=== PATIENT | male | born 1960 | race Caucasian/White ===

== ENCOUNTER 2024-06-13 10:49 | Outpatient (AMB) | payer OTHER, SELFPAY ==
--- NOTE | 2024-06-13 10:52 | MHC.OFFVIS ---
Vital Signs 06/13/24 10:53 Height 5 ft 9.69 in Weight 195 lb 8.8 oz BMI 28.3 BP 120/78 Blood Pressure Location Lt brachial Position Sitting Pulse 65 Pulse Source Pulse Oximeter Pulse Oximetry (%) 98 Oxygen Delivery Method Room Air Intake Visit Reasons: PsA Intake Note: Patient presents today with PsA. Accompanied by: Self / Same As Patient Allergies No Known Allergies Allergy (Verified 06/13/24 10:55) HPI HPI PsA: Details: New patient visit. Hx of PsO back of scalp treated with topical steroid. Past hx of PsO elbows, knees and buttocks resolved with topical steroid. He has pain in multiple joints. He has bilateral shoulder pain R>L with limited ROM in the last year. 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 Reaching is difficult. He has chronic lower back pain but at this time it is not bothering him. He may wake up with back pain and stiffness that resolves within minutes after stretching. He reports that he has had back pain since he was a teenager. Back pain flares with overactivity. R knee pain exacerbated with going up and down stairs. At this time he does not have knee pain. He has had right knee swelling 3 years ago treated with cortisone injection with resolution of pain and swelling for 3-4 months. Hx gout. Controlled on allopurinol and low purine diet. No dactylitis or joint swelling at this time. No hx of plantar fascitis, iritis, IBD. No family hx of PsO. Sister and brother has Crohn's disease. MS lower back and hip. MS few minutes resolves with stretches. He has been evaluated for chronic right hip pain and has been found to have severe osteoarthritis affecting his right hip. Surgeon recommended surgery but patient would like to defer. He was also given option to do physical therapy or trying to her articular cortisone injection. Patient is thinking about it. He has not self medicating. Pmx of HTN and gout. Hernia surgery. No rheumatological family hx. Non-smoker. No alcohol use in a few years. Works in [employer]. Review of Systems Const All systems reviewed & are unremarkable except as noted in HPI and below Physical Exam Vital Signs: Last Vital Signs Pulse 65 06/13/24 10:53 BP 120/78 06/13/24 10:53 Pulse Ox 98 06/13/24 10:53 Oxygen Delivery Method Room Air 06/13/24 10:53 BMI result Body Mass Index 28.3 Const Other: General: Comfortable CVS: RRR Respiratory: clear to auscultation bilaterally. Good respiratory effort Skin: No lesions seen MSK: Tender to palpate bilateral shoulders. Right shoulder abduction 110 degrees with limited internal rotation. Left shoulder range of motion is normal with pain. No synovitis or enthesitis. No dactylitis. Heberden nodes present. 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 Normal range of motion of knees. Right hip external rotation is limited due to pain. No tenderness to palpate SI joints. No lumbar spinous process tenderness. Good lumbar flexion. Normal cervical range of motion. Negative KEYSHA. He localizes pain to his right SI joint when he has it. Assessment & Plan Assessment & Plan (1) Psoriasis: Comment: At this time patient does not have clinical findings of peripheral inflammatory arthritis. He reports a history of chronic back pain that is intermittent since childhood. He localizes his pain to his right SI joint when it occurs. Unremarkable exam today. I will be further working up for axial inflammatory arthritis with lumbar and SI joint x-rays. The characteristic of his back pain is suggestive of degenerative etiology (pain with activity). Code(s): L40.9 - Psoriasis, unspecified Category: Medical Plan: X-ray SI joints and lumbar spine ordered Return to clinic in 3 months or sooner if needed (2) Lower back pain: Code(s): M54.50 - Low back pain, unspecified Category: Medical Qualifiers: Chronicity: chronic Plan: See above (3) Bilateral shoulder pain: Comment: Bilateral with limited range of motion of right shoulder. Differential diagnosis includes degenerative joint disease versus chronic rotator cuff tendinopathy Code(s): M25.511 - Pain in right shoulder; M25.512 - Pain in left shoulder Category: Medical Qualifiers: Chronicity: chronic Qualified Code(s): M25.511 - Pain in right shoulder; M25.512 - Pain in left shoulder; G89.29 - Other chronic pain Plan: I have ordered x-rays of bilateral shoulders for further evaluation Patient agreed to physical therapy to improve range of motion and strength in his shoulders. PT requisition given to patient as he prefers to have PT done locally to his home Return to clinic in 3 months Orders: Orders XR shoulder LT min 2V Today M25.511 - Pain in right shoulder, M25.512 - Pain in left shoulder XR shoulder RT min 2V Today M25.511 - Pain in right shoulder, M25.512 - Pain in left shoulder XR lumbar spine 2-3V Today M54.50 - Low back pain, unspecified XR sacroiliac joint min 3V Today M54.50 - Low back pain, unspecified PT Evaluation and Treatment Today M25.511 - Pain in right shoulder, M25.512 - Pain in left shoulder Coding Level of Care Code New Pt Level 4 (14102) Diagnoses Psoriasis L40.9 Lower back pain M54.50 Chronicity: chronic Chronic pain of both shoulders M25.511; M25.512; G89.29 Chronicity: chronic
[2024-06-13 10:53] VITALS: BP 120/78; PULSE 65; O2SAT 98; BMI 28.3
--- OUTSIDE RECORDS SUMMARY | 2024-06-13 12:56 | XMS_ITS | Encounter Summary ---
Author Organization [facility] Address [address] [facility] [address] [place] [phone] Phone Care Team Providers Care Septic Technician Name Role Phone Ez Lopez MD Primary Care Provider [phone] Reason for Visit * Reason Comments Medication Refill Encounter Details Date Type Department Care Team (Late st Contact Info) Description 06/10/2024 Refill [facility] [address] [place] [address] Ez Lopez MD [address] [place] [address] [email or web address] Medication Refill Social History Tobacco Use Types Packs/Day Years Used Date Smoking Tobacco: Never Smokeless Tobacco: Never Alcohol Use Standard Drinks/Week Comments Not Currently 4 (1 standard drink = 0.6 oz pure alcohol) 2-3 drinks, mixed drinks, 2 x week Quit 2022 Child or Family Care Answer Date Record ed Do you have problems with on e of the following making it difficult for you to work, study, or receive health care? No 01/04/2022 Education Answer Date Recorded Are you interested in more education? Not on zakiya e 01/18/2024 Are you concerned about learning? Not on file 01/18/2024 No 01/18/2024 No 01/18/2024 Food Answer Date Recorded Within the past 6 months we worried whether our food would run out before we got money to buy more. Never True 01/04/2022 Within the past 6 months the food we bought just didn't last and we didn't have enough money to get more. Never True Residential Stability Answer Date Recor ded What is your housing situation today? I have jennifer sing 01/04/2022 How many times have you move d in the past 12 months? Zero (I did not move) 01/04/2022 Paying for Meds Answer Date Recorded Do you have trouble paying for medicines? No 01/04/2022 Paying Utility Bills Answer Date Record ed Do you have trouble paying your heating or elect ricity bill? No 01/04/2022 Transportation Answer Date Recorded Has the lack of transportati on kept you from medical appointments or from getting medications? No 01/04/2022 Unemployment Answer Date Recorded Are you currently unemployed or working on a part-time or temporary basis, and looking for work? No 01/04/2022 Digital Access Answer Date Recorded No 07/14/2022 No 07/14/2022 Reliable internet access at home? Not on file 07/14/2022 Device with a working camera? Not on file Sex and Gender Information Value Date Recorded Sex Assigned at Not on file Gender Identity Not on file Sexual Orientation Not on file documented as of this encounter Progress Notes * Kamla Masterson CMA - 06/11/2024 8:28 AM EDT Rx Care Gap Status - Instructions for Clinical Staff (prescriber discretion applies): > At least one medication below does not meet full criteria. Please see medication-specific renewal instructions below. > Labs due: Remind patient to get lab tests done soon. > No new orders needed. Uric Acid CBC LFTs BMP Visit Info Last visit: 05/23/2024 Ez Lopez MD - Internal Medicine [facility] > Requested f/u: Return in about 3 months (around 08/22/2024) for Annual physical. Upcoming visit: 09/04/2024 Ez Lopez MD - Internal Medicine [facility] ACTIONS TAKEN BY Kamla Masterson CMA - No action needed by clinical staff Gout Rx Protocol - allopurinol Criteria not met; renew for up to 3 months. Visit in the past 14 months: Yes Clinical criteria: - BMP within past year: None (has active order) - LFTs within past year: None (has active order) - CBC within past year: None (has active order) - Uric acid within past year: None (has active order) - Last Cr normal: n/a Lab Results Component Value Date SODIUM 135 08/07/2019 POTASSIUM 4.2 08/07/2019 CHLORIDE 100 08/07/2019 CO2 23 08/07/2019 BUN 11 08/07/2019 CREATININE 0.90 08/07/2019 EGFR 94 08/07/2019 Lab Results Component Value Date URIC ACID 3.8 08/07/2019 Health Maintenance Labs Due / Due Soon Topic Date Due LIPID PANEL Never done SCREENING FOR DIABETES 08/06/2022 CREATININE LEVEL 09/14/2022 POTASSIUM LEVEL 09/14/2022 documented in this encounter Plan of Treatment Upcoming Encounters Date Type Department Care Team (Latest Contact Info) Description 09/04/2024 10:00 AM EDT Appointment [facility] [address] [place] [address] Ez Lopez MD [address] [place] [id number] 09/10/2024 9:00 AM EDT Office Visit [facility] [address] [place] [phone] Burak Augustine MD [address] [place] [address] Orthopedics & Sports Medicine, [place], [place] [phone] 09/19/2024 2:00 PM EDT Appointment [facility] [address] [place], [place] [phone] Ez Lopez MD [address] [place] [address] [phone] 10/02/2024 2:30 PM EDT Office Visit [facility] [address] [place] [phone] Burak Augustine MD [address] [place] [address] Orthopedics Sports [facility], [place] [address] 10/29/2024 Procedure Pass OR Admitting Dept - Virtual Department [address] [place] [phone] 10/29/2024 7:30 AM EDT Hospital Encounter OR Admitting Dept - Virtual Department [address] [place] [phone] Burak Augustine MD [address] [place] [address] Orthopedics [facility], [place] [address] 10/29/2024 7:30 AM EDT - 10/29/2024 12:12 PM EDT Surgery OR Admitting Dept - Virtual Department [address] [place] [phone] Burak Augustine MD [address] [place] [address] Orthopedics [facility], [place] [address] ARTHROPLASTY TOTAL HIP 11/13/2024 11:00 AM EDT Office Visit [facility] [address] [place] [phone] Freddy Mcmahan PA-C [address] [place] [address] Orthopedics [facility], [place] [address] [email or web address] 12/11/2024 1:30 PM EDT Office Visit [facility] [address] [place] [phone] Burak Augustine MD [address] [place] [address] Orthopedics Sports [facility], [place], [place] [phone] Scheduled Procedures Name Priority Associated Diagnoses Date/Ti me ARTHROPLASTY TOTAL HIP Primary osteoarthritis of right hip 10/29/2024 7:30 AM EDT documented as of this encounter Visit Diagnoses Diagnosis Acute idiopathic gout involving toe, unspecified laterality Primary osteoarthritis of right hip documented in this encounter Additional Health Concerns Assessment Noted Time PHQ-2 Depression Total Score: 0 05/24/19 8:33 AM EDT documented as of this encounter Care Teams Septic Technician Relationship Specialty Start Date End Date Ez Lopez MD [address] [place] [id number] [email or web address] PCP - General Internal Medicine 10/09/20 documented as of this encounter Additional Source Comments The information contained in this document represents components of the legal health record. It is not the complete legal health record.[facility]
--- OUTSIDE RECORDS SUMMARY | 2024-06-13 12:56 | XMS_ITS | Clinical Summary ---
Author Organization [facility] Address [address] [facility] [address] [place] [address] Phone Care Team Providers Care Personal Property Assessor Name Role Phone Ez Lopez MD Primary Care Provider [phone] Allergies No known active allergies Medications Medication Sig Dispensed Refills Start Date End Date Status lansoprazole (PREVACID) 15 MG capsule Take 15 mg by mouth daily. Active metoprolol succinate (TOPROL-XL) 25 MG 24 hr tabletIndications :Hypertension take 1 tablet by mouth every day 90 tablet 3 09/16/2023 Active lisinopril (PRINIVIL,ZESTRIL ) 20 MG tabletIndications :Hypertension TAKE 1 TABLET BY MOUTH EVERY DAY 90 tablet 03/13/2024 Active meloxicam (MOBIC) 7.5 MG tabletIndications :Hip pain, right Take 1 tablet (7.5 mg total) by mouth daily. 30 tablet 05/23/2024 Active allopurinol (ZYLOPRIM) 100 MG tabletIndications :Acute idiopathic gout involving toe, unspecified laterality TAKE 2 TABLETS BY MOUTH EVERY MORNING. 180 tablet 06/11/2024 Active allopurinol (ZYLOPRIM) 100 MG tabletIndications :Acute idiopathic gout involving toe, unspecified laterality Take 2 tablets (200 mg total) by mouth every morning. 180 tablet 03/13/2024 06/11/2024 Discontinued Active Problems Problem Noted Date Diagnosed Date Hip pain, right 05/23/2024 Assessment & Plan (05/23/2024 11:45 AM EDT): Right hip pain within the groin with with rotation and extension, most likely arthritic, obtain x-ray and referral to orthopedics especially given the chronic history thereof. Meloxicam given his sensitive stomach 7.5 mg daily to help with the pain. Arthropathy 08/08/2023 Assessment & Plan (08/08/2023 10:44 AM EDT): There are no overt signs of psoriatic arthritis but the upholstery tech diagnosed him with psoriasis and he has some arthropathy so suggested that the patient set up with rheumatology Anterior blepharitis of right upper eyelid 08/07 Assessment & Plan (08/08/2023 10:42 AM EDT): Thickening of the medial upper eyelid, apply erythromycin to the area and also into the conjunctiva of the right eye 3 times daily for 5 days. If there is any spread of the blepharitis while looking into the near, please let us know we will call in a oral medication. Gastroesophageal reflux disease without esophagi tis 08/08/2023 Assessment & Plan (08/08/2023 10:43 AM EDT): Patient will continue Prevacid for acid indigestion, consider GI referral, obtain Cologuard for colon cancer screening, if positive referral for upper and lower endoscopy. Routine general medical exam ination at a [facility] care facility 01/04/2022 Assessment & Plan (08/08/2023 10:44 AM EDT): We have not seen this patient for PHYSICAL EXAM So we will obtain physical exam labs and also labs appropriate to his medical conditions and see him back in about 3 months. Assessment & Plan (01/04/2022 2:38 PM EST): The patient comes in for physical exam. We are also following him every 6 months for high blood pressure, hyperuricemia. In the right ear he did not have basal cell CII but rather it was actinic keratosis. Nonetheless he has psoriasis on exam that we did not know about before. I informed the patient about this and will refer him to dermatology for further assessment and treatment. For symptom relief he can rub in some hydrocortisone 1% cream at the itchy area at the back and scalp. We will be sending him today to the lab, we had obtained labs in advance but he had forgotten to get them done first. Flu shot will be administered today. Follow-up in 6 months. Psoriasis 01/04/2022 Assessment & Plan (05/23/2024 11:46 AM EDT): Patient continues to see dermatology. Acute idiopathic gout 08/07/2019 Assessment & Plan (05/23/2024 11:45 AM EDT): Hyperuricemia will be reassessed with physical exam labs and will see the patient back in August with prior labs. Assessment & Plan (08/08/2023 10:42 AM EDT): History of gout, obtain uric acid level, on allopurinol, check liver enzymes and blood counts. Assessment & Plan (08/07/2019 4:12 PM EDT): Left-sided podagra reacting after meal high in purine's, patient instructed in the future not to double up on allopurinol but rather take the 200 mg to start with as a preventative measure then if inadequate discontinue and call us up and then will write the prednisone. For this current attack that appears to be on the Gilbert prednisone 20 mg twice daily for 7 days. A refill was granted in case he has another attack. He should really stay on 200 mg of allopurinol and consider restart the allopurinol in a few days. Purine rich foods discussed with patient. Sprain of medial collateral ligament of left maryellen e 01/02/2019 Assessment & Plan (08/07/2019 4:12 PM EDT): He has been having a little bit of chronic knee pain from a sprain and this is been worsened by the fact that he is walking on the outside margin of his foot putting strain on the knee where he normally would not. This should improve with the prednisone but also once the gout is taken care of will go back to walking normally. Assessment & Plan (01/02/2019 4:51 PM EST): Persisting knee pain medial left knee on exam consistent with MCL sprain but could also involve the meniscus. No signs of knee effusion, still antalgic gait, outpatient will be referred to orthopedics for further eval. Benign essential hypertension 01/02/2019 Assessment & Plan (05/23/2024 11:45 AM EDT): Hypertension well controlled with current listed antihypertensives. Denies side effects No change to dosing. Low Sodium diet reinforced. Continue to monitor condition. Assessment & Plan (08/08/2023 10:42 AM EDT): Blood pressure is very well-controlled with the lisinopril 20 mg, continue blood pressure medicine without change, check electrolytes kidney function, low-sodium diet reinforced. Assessment & Plan (09/14/2021 6:45 PM EDT): On the second reading blood pressure much better, will maintain the antihypertensives as such and patient will go fasting for physical exam labs including a Chem-7. He had not had any labs since 2019 and part of the reason is that he could not get to the office until later. So he can go Tuesday to waiting to get the labs done and will include a PSA. Then we will see him for physical in 3 months. We talked him about low-sodium diet and in particular hidden salts. Assessment & Plan (08/07/2019 4:10 PM EDT): Check Chem-7, blood pressure good, reassess in 3 months, low-sodium diet reinforced, exercise reinforced. Assessment & Plan (01/02/2019 4:50 PM EST): Hypertension well controlled with current listed antihypertensives. Denies side effects No change to dosing. Low Sodium diet reinforced. Continue to monitor condition. Resolved Problems Problem Noted Date Diagnosed Date Resolved Date BCC (basal cell carcinoma), ear, right 09/14/2021 01/04/2022 Assessment & Plan (09/14/2021 6:44 PM EDT): Diagnosis of suspicion right ear basal cell CA and because of the location best to be treated by ears nose throat physician. Patient referred to Dr. Diamond, patient works close to [facility] where Dr. Diamond had moved to. If insurance does not accept, will refer patient to Dr. Lobato. Acute pain of left knee 12/01/2018 04/0 03/2024 Encounters Date Type Department Care Team Description 06/10/2024 Refill [facility] Internal Medicine [address] [facility] [address] Ez Lopez MD Medication Refill 05/30/2024 9:00 AM EDT Office Visit [facility] [address] [place] [address] Burak Augustine MD Primary osteoarthritis of right hip (Primary Dx); Stiffness of right hip joint 05/30/2024 8:10 AM EDT - 05/30/2024 11:59 PM EDT Hospital Encounter [facility], X-Ray - [address] [place] [address] Burak Augustine MD Discharge Disposition: Home or Self Care 05/24/2024 Orders Only [facility] [address] [place] [address] Evette Levy David Pain (Primary Dx) 05/23/2024 11:15 AM EDT Office Visit [facility] Internal Medicine [address] [facility] [place] [address] Ez Lopez MD Screening for human immunodeficiency virus (Primary Dx); Hip pain, right; Benign essential hypertension; Acute idiopathic gout involving toe, unspecified laterality; Psoriasis; Acute pain of left knee from Last 3 Months Immunizations Name Administration Dates Next Due Influenza Quadrivalent Preservative Free IM 12/22 Influenza Trivalent w/ Preservative IM 6 Family History Medical History Relation Comments Breast cancer Mother Relation Status Comments Mother Social History Tobacco Use Types Packs/Day Years Used Date Smoking Tobacco: Never Smokeless Tobacco: Never Tobacco Cessation:Counseling Given: Not Answered Alcohol Use Standard Drinks/Week Comments Not Currently [...] on file Sexual Orientation Not on file Last Filed Vital Signs Vital Sign Reading Time Taken Comments Blood Pressure 96/58 05/23/2024 11:13 AM EDT Pulse 54 05/23/2024 11:13 AM EDT Temperature 36.3 ??C (97.3 ??F) 05/23/2024 11:13 AM E DT Respiratory Rate 20 05/23/2024 11:13 AM EDT Oxygen Saturation 99% 05/23/2024 11:13 AM EDT Inhaled Oxygen Concentration - - Weight 88.6 kg (195 lb 5.2 oz) 05/30/2024 8:58 A M EDT Height 174.6 cm (5' 8.74 ) 05/30/2024 8:58 AM ED T Body Mass Index 29.06 05/30/2024 8:58 AM EDT Plan of Treatment Upcoming Encounters Date Type Department Care Team (Latest Contact Info) Description 09/04/2024 10:00 AM EDT Appointment [facility] Internal Medicine [address] [place] [address] Ez Lopez MD [address] [place] [phone] 09/10/2024 9:00 AM EDT Office Visit [facility] Medicine [address] [place] [address] Burak Augustine MD [address] [place] [address] Orthopedics & Sports Medicine, [place] [address] 09/19/2024 2:00 PM EDT Appointment [facility] Internal Medicine [address] [place] [address] Ez Lopez MD [address] [place] [address] 10/02/2024 2:30 PM EDT Office Visit [facility] Medicine [address] [place] [address] Burak Augustine MD [address] [place] [address] [facility] [place], [place] [phone] 10/29/2024 Procedure Pass OR Admitting Dept - Virtual Department [address] [place] [address] 10/29/2024 7:30 AM EDT Hospital Encounter OR Admitting Dept - Virtual Department [address] [place] [address] Burak Augustine MD [address] [place] [address] Orthopedics & Sports [facility], [place] [address] 10/29/2024 7:30 AM EDT - 10/29/2024 12:12 PM EDT Surgery OR Admitting Dept - Virtual Department [address] [place] [address] Burak Augustine MD [address] [place] [address] Orthopedics & Sports [facility], [place] [address] ARTHROPLASTY TOTAL HIP 11/13/2024 11:00 AM EDT Office Visit [facility] Medicine [address] [place] [address] Freddy Mcmahan PA-C [address] [place] [address] Orthopedics Sports [facility], [place] [address] [email or web address] 12/11/2024 1:30 PM EDT Office Visit [facility] Medicine [address] [place] [address] Burak Augustine MD [address] [place] [address] Orthopedics Sports [facility], [place], [place] [id number] [email or web address] [email or web address] Procedures Name Priority Associated Diagnoses Date/Ti me ARTHROPLASTY TOTAL HIP Primary osteoarthritis of right hip 10/29/2024 7:30 AM EDT Health Maintenance Due Date Last Done Comments Adult Td,Tdap Booster 1961 LIPID PANEL 1961 HIV ONE-TIME SCREENING (18-6 5 YEARS) 10/29/1979 COLOGUARD 2006 COLONOSCOPY 2006 COLORECTAL CANCER SCREENING 2006 FIT TEST 2006 FOBT 2006 SIGMOIDOSCOPY 2006 VIRTUAL COLONOSCOPY 2006 PNEUMOCOCCAL VACCINES (50+ years) (1 of 1 - PCV) 10/29/2011 ZOSTER VACCINES (1 of 2) 10/29/2011 SCREENING FOR DIABETES 08/06/2022 08/07/2019 CREATININE LEVEL 09/14/2022 09/14/2021, 08/07/2019 POTASSIUM LEVEL 09/14/2022 09/14/2021, 08/07/2019 COVID-19 VACCINE (3 - 2023-2 5 season) 2023 11/20/2020, 10/30/2020 BLOOD PRESSURE 11/22/2024 05/23/2024 DEPRESSION SCREENING 05/23/2025 05/23/2024 RSV VACCINE (1 - 1-dose 75+ series) 2036 HEPATITIS C SCREENING Completed 09/14/2021 SMOKING STATUS SCREENING (On ce After 26 Yrs) Completed 05/30/2024 HEPATITIS A VACCINES Aged Out No long er eligible based on patient's age to complete this topic HIB VACCINES Aged Out No longer eligi ble based on patient's age to complete this topic MENINGOCOCCAL VACCINES (ACWY) Aged Out No longer eligible based on patient's age to complete this topic Medical Devices Not on file Procedures Procedure Name Priority Date/Time Associated Diagnosis Comments XR HIP 2 VW RIGHT PLUS PELVIS Routine 05/30/2024 8:53 AM EDT Pain BASIC METABOLIC PANEL Routine 08/07/2019 4:09 PM EDT Essential hypertension from Last 3 Months or Most Recently Relevant to Health Maintenance Results * XR HIP 2 VW RIGHT PLUS PELVIS (05/30/2024 8:53 AM EDT) Anatomical Region Laterality Modality Hip, Pelvis Computed Radiogr aphy 05/30/2024 11:3 8 AM EDT Impressions 05/30/2024 11:39 AM EDT FINDINGS/IMPRESSION: There is no evidence of acute fracture, subluxation, or dislocation. There is advanced degenerative change of the right hip with weku-zk-[id number] joint space narrowing, marginal osteophytosis, subchondral sclerosis, subchondral cyst formation, and osseous remodeling. There is mild degenerative change of the left hip. The sacroiliac joints and symphysis pubis are congruent. There is incompletely evaluated degenerative change of the lower lumbar spine. Narrative 05/30/2024 11:39 AM EDT XR HIP 2 VW RIGHT PLUS PELVIS 05/30/2024 8:30 AM Referring clinician's provided indication for this examination in [facility]: Pain COMPARISON: None Procedure Note aMine Maier MD - 05/30/2024 XR HIP 2 VW RIGHT PLUS PELVIS 05/30/2024 8:30 AM Referring clinician's provided indication for this examination in Epic:Pain COMPARISON: None IMPRESSION: FINDINGS/IMPRESSION: There is no evidence of acute fracture, subluxation, or dislocation. Thereis advanced degenerative change of the right hip with tmgm-ae-zgeu jointspace narrowing, marginal osteophytosis, subchondral sclerosis,subchondral cyst formation, and osseous remodeling. There is milddegenerative change of the left hip. The sacroiliac joints and symphysispubis are congruent. There is incompletely evaluated degenerative changeof the lower lumbar spine. Burak Augustine MD IMG XR PELVIS * (ABNORMAL) Basic metabolic panel (08/07/2019 4:09 PM EDT) SODIUM 135 133 - 146 mmol/L [facility] CHLORIDE 100 96 - 108 mmol/L [facility] POTASSIUM 4.2 3.3 - 5.1 mmol/L [facility] CO2 23 21 - 35 mmol/L [facility] BUN 11 6 - 19 mg/dL [facility] CREATININE 0.90 0.5 - 1.5 mg/dL [facility] GLUCOSE 105(H) 70 - 99 mg/dL [facility] CALCIUM 10.4(H) 8.4 - 10.3 mg/dL [facility] EGFR 94 >59 mL/min/1.7 3m2 [facility] Comment:If patient is black, multiply result by 1.159. Estimated glomerular filtration rate calculated using the CKD-EPI equation. ANION GAP 16 10 - 20 mmol/L [facility] Blood 08/07/2019 4:09 PM EDT 08/07/2019 8:33 PM EDT Ez Lopez MD LAB BLOOD ORDERABLES [facility] [address] [place] [address] from Last 3 Months or Most Recently Relevant to Health Maintenance Care Teams Personal Property Assessor Relationship Specialty Start Date End Date Ez Lopez MD [address] [place] [address] [email or web address] PCP - General Internal Medicine 10/09/20 Additional Source Comments The information contained in this document represents components of the legal health record. It is not the complete legal health record.[facility]
--- OUTSIDE RECORDS SUMMARY | 2024-06-13 12:56 | XMS_ITS | Encounter Summary ---
Author Organization [facility] Address [address] [facility] [address] [place] [phone] Phone Care Team Providers Care Columnist/Commentator Name Role Phone Ez Lopez MD Primary Care Provider [phone] Encounter Details Date Type Department Care Team (Late st Contact Info) Description 05/24/2024 Orders Only [facility] Orthopedics & Sports Medicine [address] [place] [address] [place] [address] Evette Levy [address] [place] [address] [email or web address] Pain (Primary Dx) Social History Tobacco Use Types Packs/Day Years [...] your housing situation today? I have jennifer gordon 01/04/2022 How many times have you move [...] on file documented as of this encounter Plan of Treatment Upcoming Encounters Date Type Department Care Team (Latest Contact Info) Description 09/04/2024 10:00 AM EDT Appointment [facility] Internal Medicine [address] [place], [place] [phone] Ez Lopez MD [address] [place] [address] 09/10/2024 9:00 AM EDT Office Visit [facility] Orthopedics & Sports Medicine [address] [place] [address] [phone] Burak Augustine MD [address] [place] [address] Orthopedics & Sports Medicine, [place], [place] [phone] 09/19/2024 2:00 PM EDT Appointment [facility] Internal Medicine [address] [place], [place] [phone] Ez Lopez MD [address] [place] [address] 10/02/2024 2:30 PM EDT Office Visit [facility] Orthopedics & Sports Medicine [address] [place] [address] Burak Augustine MD [address] [place], [place] [address]s Sports [facility], [place] [address] 10/29/2024 Procedure Pass OR Admitting Dept - Virtual Department [address] [place] [phone] 10/29/2024 7:30 AM EDT Hospital Encounter OR Admitting Dept - Virtual Department [address] [place] [address] Burak Augustine MD [address] [place], [place] [address]s Sports [facility], [place] [address] 10/29/2024 7:30 AM EDT - 10/29/2024 12:12 PM EDT Surgery OR Admitting Dept - Virtual Department [address] [place] [address] Burak Augustine MD [address] [place] [address] Orthopedics Sports [facility], [place] [address] ARTHROPLASTY TOTAL HIP 11/13/2024 11:00 AM EDT Office Visit [facility] Orthopedics & Sports Medicine [address] [place] [address] Freddy Mcmahan PA-C [address] [place] [address] Orthopedics Sports [facility], [place], [place] [phone] [email or web address] 12/11/2024 1:30 PM EDT Office Visit [facility] Orthopedics & Sports Medicine [address] [place] [address] [phone] Burak Augustine MD [address] [place] [address] Orthopedics Sports Medicine, [place] [address] [email or web address] Scheduled Procedures Name Priority Associated Diagnoses Date/Ti me ARTHROPLASTY TOTAL HIP Primary osteoarthritis of right hip 10/29/2024 7:30 AM EDT documented as of this encounter Results * XR HIP 2 VW RIGHT PLUS PELVIS (05/30/2024 8:53 AM EDT) Anatomical Region Laterality Modality Hip, Pelvis Computed Radiogr aphy 05/30/2024 11:3 8 AM EDT Impressions 05/30/2024 11:39 AM EDT FINDINGS/IMPRESSION: There is no evidence of acute fracture, subluxation, or dislocation. There is advanced degenerative change of the right hip with dgwy-lc-nyru joint space narrowing, marginal osteophytosis, subchondral sclerosis, [...] clinician's provided indication for this examination in [facility]: Pain COMPARISON: None Procedure Note Maine Maier MD - 05/30/2024 XR HIP 2 VW RIGHT PLUS PELVIS 05/30/2024 8:30 AM Referring clinician's provided indication for this examination in [facility]:Pain COMPARISON: None IMPRESSION: FINDINGS/IMPRESSION: There is no evidence of acute fracture, subluxation, or dislocation. Thereis advanced degenerative change of the right hip with nqyi-bg-wxcs jointspace narrowing, marginal osteophytosis, subchondral sclerosis,subchondral cyst formation, and osseous remodeling. There is milddegenerative change of the left hip. The sacroiliac joints and symphysispubis are congruent. There is incompletely evaluated degenerative changeof the lower lumbar spine. Burak Augustine MD IMG XR PELVIS documented in this encounter Visit Diagnoses Diagnosis Pain- Primary Generalized pain Pain Generalized pain Primary osteoarthritis of right hip documented in this encounter Additional Health Concerns Assessment Noted Time PHQ-2 Depression Total Score: 0 05/24/19 25 8:33 AM EDT documented as of this encounter Care Teams Columnist/Commentator Relationship Specialty Start Date End Date Ez Lopez MD [address] [place] [address] [email or web address] PCP - General Internal Medicine 10/09/20 documented as of this encounter Additional Source Comments The information contained in this document represents components of the legal health record. It is not the complete legal health record.[facility]
== END 2024-06-13 11:45 | disposition home or self-care (01) ==
LOC: HO.RHES 10:50
PROVIDERS: PCP Internal Medicine; Referring Provider Dermatology; Visit Provider Internal Medicine Rheumatology
DX: L40.9 Psoriasis, unspecified (principal); M54.50 Low back pain, unspecified; M25.511 Pain in right shoulder; M25.512 Pain in left shoulder; G89.29 Other chronic pain
CPT/HCPCS: 99204

== ENCOUNTER → 2024-06-13 10:49 | Outpatient (BNVA) | payer OTHER, SELFPAY | PROVIDERS: PCP Internal Medicine; Referring Provider Dermatology; Visit Provider Internal Medicine Rheumatology ==